=== PATIENT | male | born 1960 | race Caucasian/White ===

== ENCOUNTER 2017-07-13 17:20 | Emergency (ER) | payer OTHER ==
[2017-07-13 17:43] VITALS: PULSE 64; TEMP 98.2
--- NOTE | 2017-07-13 18:42 | EDPHY ---
H & P Stated Complaint: L middle finger injury Time Seen by Provider: 07/13/17 18:32 HPI/ROS: Chief Complaint: Left finger injury HPI: 57-year-old male lacerated the tip of his left 3rd finger on a jointer while would working. This happened approximately an hour and half ago. He is not up-to-date in his tetanus. No prior injuries. The bleeding is controlled with pressure at home. ROS: 10 point Review of Systems is negative except as noted in the HPI. Physical Exam: General: Awake, alert, no acute distress Right finger pain or patient has an avulsion of the dorsal aspect of his right distal 3rd digit. There is avulsion of his distal nail and nail bed in to the pulp of the finger. He has full flexion extension. Sensations intact. - Personal History Current Tetanus/Diphtheria Vaccine: No Current Tetanus Diphtheria and Acellular Pertussis (TDAP): No - Medical/Surgical History Hx Asthma: No Hx Chronic Respiratory Disease: No Hx Diabetes: No Hx Cardiac Disease: No Hx Renal Disease: No Hx Cirrhosis: No Hx Alcoholism: No Hx HIV/AIDS: No Hx Splenectomy or Spleen Trauma: No Other PMH: denies - Social History Smoking Status: Never smoked Constitutional: Initial Vital Signs Temperature (C) 36.8 C 07/13/17 17:41 Heart Rate 64 07/13/17 17:41 Respiratory Rate 16 07/13/17 17:41 O2 Sat (%) 97 07/13/17 17:41 O2 Delivery Mode Room Air Allergies/Adverse Reactions: No Known Allergies Allergy (Unverified 07/13/17 17:40) Home Medications: Medication Instructions Recorded Cephalexin [Keflex (*)] 500 mg PO Q6H #40 cap 07/13/17 Medical Decision Making Procedures: Procedure: Digital nerve block, indication is digit anesthesia for procedure. Patient was prepped with chlorhexidine Skin prep. 0.5% bupivacaine was infiltrated in the medial in lateral aspects for with a dorsal approach at the base of the proximal phalanx with blockage of both dorsal and volar nerves. Total of 1 mL was infiltrated. There were no complications. Procedure was performed by myself. ED Course/Re-evaluation: Patient was significant avulsion of his distal phalanx. There is some nail bed involvement. There is a significant tissue loss but there is no bone involvement. I do think that this will likely heal without any difficulty. Given that it approaches the periosteum will start him on antibiotics. Will refer for outpatient follow up with Hand surgery next 2-3 days. - Data Points Medications Given: Discontinued Medications Diphtheria/Tetanus/Acell Pertussis (Boostrix) 0.5 ml IM .ONCE ONE Stop: 07/13/17 18:52 Last Admin: 07/13/17 18:53 Dose: 0.5 ml Departure - Departure Disposition: Home, Routine, Self-Care Clinical Impression: Avulsion, finger tip Condition: Good Instructions: Skin Avulsion (ED) Additional Instructions: Follow up with Hand surgery in the next 2-3 days. Return to the emergency department for increasing redness, discharge from the wound, fevers, chills, increasing pain, or any other concerns. Referrals: Seth Young MD [Medical Doctor] - As per Instructions Prescriptions: Cephalexin [Keflex (*)] 500 mg PO Q6H #40 cap
[2017-07-13] MEDS ORDERED: TDAP ADULT 0.5 ML INJ (BOOSTRIX) IM ONE (18:51)
[2017-07-13] MEDS ORDERED: CEPHALEXIN 500MG PREPACK#4 BTL TAKEHOME ONE (19:10)
[2017-07-13 19:29] VITALS: BP 123/67; RESP 18; O2SAT 95
== END 2017-07-13 19:28 | disposition home or self-care (01) ==
PROC: 3E0T3BZ Introduction of Anesthetic Agent into Peripheral Nerves and Plexi, Percutaneous Approach (ICD-10-PCS; principal; 2017-07-13)
DX: S61.203A Unspecified open wound of left middle finger without damage to nail, initial encounter (principal); Z23 Encounter for immunization; X58.XXXA Exposure to other specified factors, initial encounter; Y93.89 Activity, other specified